=== PATIENT | male | born 1995 | race Caucasian/White ===

== ENCOUNTER 2017-11-22 12:03 | Emergency (ER) | payer BC, OTHER ==
[2017-11-22 12:20] VITALS: BP 143/77
--- NOTE | 2017-11-22 12:36 | ED ---
Headache - HPI Summary HPI Summary: 22 yr old male with complaint of headache, right arm numbness at times, confusion, trouble walking. The patient is here with his 7 yr girlfriend who states that he has had trouble at times carrying tasks like closing a garbage bag, screw a screw, spell words, follow instruction. The patient reports that he has forgot what he is doing at times. He has a family history of strokes and TIA in people in their 20s. He has HTN. He has had symptoms for five days at this point. He started taking vitamin supplement on Saturday as well, but has not taken it in three days now. - History Of Current Complaint Chief Complaint: UCGeneralIllness Stated Complaint: CONGNITIVE ISSUES Time Seen by Provider: 11/22/17 12:22 - Allergies/Home Medications Allergies/Adverse Reactions: Allergies Allergy/AdvReac Type Severity Reaction Status Date / Time No Known Allergies Allergy Verified 11/22/17 12:16 Home Medications: Home Medications NK [No Home Medications Reported] 11/22/17 [History Confirmed 11/22/17] PMH/Surg Hx/FS Hx/Imm Hx Cardiovascular History: Reports: Hx Hypertension - Surgical History Surgery Procedure, Year, and Place: tonsillectomy Infectious Disease History: No Infectious Disease History: Denies: Traveled Outside the [place] in Last 30 Days - Social History Alcohol Use: Rare Substance Use Type: Reports: None Smoking Status (MU): Never Smoked Tobacco Review of Systems Constitutional: Negative Negative: Photophobia Positive: Headache, Paresthesia All Other Systems Reviewed And Are Negative: Yes Physical Exam Triage Information Reviewed: Yes Vital Signs On Initial Exam: Initial Vitals Temp Pulse Resp BP Pulse Ox 97.7 F 70 16 143/77 98 11/22/17 12:12 11/22/17 12:12 11/22/17 12:12 11/22/17 12:12 11/22/17 12:12 Vital Signs Reviewed: Yes Appearance: Positive: Well-Appearing, No Pain Distress Skin: Positive: Warm, Skin Color Reflects Adequate Perfusion Head/Face: Positive: Normal Head/Face Inspection Eyes: Positive: EOMI, SHANIA ENT: Positive: TMs normal Respiratory/Lung Sounds: Positive: Clear to Auscultation, Breath Sounds Present Cardiovascular: Positive: RRR. Negative: Murmur Abdomen Description: Positive: Nontender Musculoskeletal: Positive: Strength/ROM Intact Neurological: Positive: Sensory/Motor Intact, Alert, Oriented to Person Place, Time, CN Intact II-III, Normal Gait, Speech Normal Psychiatric: Positive: Normal - Cori Coma Scale Best Eye Response: 4 - Spontaneous Best Motor Response: 6 - Obeys Commands Best Verbal Response: 5 - Oriented Coma Scale Total: 15 Diagnostics - Vital Signs Vital Signs Temp Pulse Resp BP Pulse Ox 11/22/17 12:12 97.7 F 70 16 143/77 98 - Laboratory Lab Statement: Any lab studies that have been ordered have been reviewed, and results considered in the medical decision making process. Headache Course/Dx - Course Course Of Treatment: 22 yr old with headache, and right arm numbness on and off for five days with periods of confusion. He is here with his girlfriend, and he does not want an ambulance to the ER. They both verbalize that the girlfriend is driving him to the ER now. - Diagnoses Provider Diagnoses: Headache, Arm paresthesia, right, Hypertension Discharge - Sign-Out/Discharge Documenting (check all that apply): Patient Departure All imaging exams completed and their final reports reviewed: No Studies - Discharge Plan Condition: Good Disposition: HOME-RECOMMEND TO ED Patient Education Materials: Acute Headache (ED), Paresthesia (ED), Hypertension (ED) Referrals: Noa Lyles PA [Physician Coil Shaper] - Additional Instructions: You should go to the ER for further work up immediately upon leaving here. - Billing Disposition and Condition Condition: GOOD Disposition: Home-Recommend to ED
== END 2017-11-22 12:37 | disposition home health service (06) ==
LOC: UCCORT 12:03
DX: R51 Headache (principal); R20.0 Anesthesia of skin; I10 Essential (primary) hypertension
CPT/HCPCS: 99201; G0463